=== PATIENT | female | born 1995 | race Caucasian/White ===

== ENCOUNTER → 2020-06-04 14:07 | Outpatient (CLI) | payer OTHER, SELFPAY ==
--- NOTE | 2020-06-04 | DI.MRI.S_ITS ---
PROCEDURE: MR KNEE LT WO CON INDICATIONS: OTHER INSTABILITY, LEFT KNEE TECHNIQUE: Noncontrast sagittal PD fast spin echo and T2 fast spin echo with fat saturation, sagittal 3-D FLASH with fat saturation; coronal T1 spin echo and PD fast spin echo with fat saturation, and axial PD fast spin echo with fat saturation through the knee. COMPARISON: [facility], CR, XR KNEE 3 VIEWS LEFT, 03/25/2020, 18:34. FINDINGS: Image quality: Excellent. Menisci: Partial detachment of the medial meniscal posterior horn. The medial and lateral menisci demonstrate otherwise normal morphology and internal signal. The meniscal root ligaments appear intact. Cruciate ligaments: The anterior and posterior cruciate ligaments appear intact. Medial structures: The medial collateral ligament appears intact. Visualized portions of the pes anserinus tendons appear normal. No abnormal bursal fluid. Lateral structures: The lateral collateral ligament, long and short heads of the biceps femoris tendon appear intact. The popliteus tendon appears normal. Iliotibial band appears normal. Anterior structures: The quadriceps and patellar tendons appear intact there is lateral patellar subluxation. No femoral trochlear dysplasia or ventral trochlear prominence. There is mild edema within the superolateral aspect of the infrapatellar fat pad. Bones and cartilage: No bone marrow contusions or fractures. Moderate articular cartilage loss overlies the lateral patellar facet inferiorly. Joint space: There is physiologic knee joint fluid. No Vázquez's cyst. Normal appearing synovial plicae are incidentally noted. IMPRESSION: 1. Findings consistent with mild/early lateral patellofemoral friction syndrome in the appropriate clinical setting. 2. Partial detachment of the medial meniscus. Dictated by: Jamison Rivera M.D. on 06/04/2020 at 15:09 Approved by: Jamison Rivera M.D. on 06/04/2020 at 15:15
== END ==
PROVIDERS: Referring Provider Orthopaedic Surgery; Visit Provider Orthopaedic Surgery
DX: M25.362 Other instability, left knee (principal); M23.322 Other meniscus derangements, posterior horn of medial meniscus, left knee
CPT/HCPCS: 73721